=== PATIENT | male | born 1955 | race African-American/Black ===

== ENCOUNTER 2017-08-09 17:12 | Emergency (ER) | payer MEDICAID, OTHER ==
[~2017-08-09] VITALS: Ht 165.1 cm; Wt 60.0 kg
[2017-08-09] MEDS ORDERED: haldol (17:23)
[2017-08-09] MEDS ORDERED: AMLO2.5T2 PO (17:23)
[2017-08-09] MEDS ORDERED: OLAN2.5T3 PO (17:23)
[2017-08-09] MEDS ORDERED: BENZ0.5T3 PO (17:23)
[2017-08-09] MEDS ORDERED: IBUPROFEN 600MG TABLET PO ONE (18:45)
[2017-08-09 19:39] VITALS: BP 147/79
== END 2017-08-09 19:40 | disposition home or self-care (01) ==
LOC: ER 17:19
DX: S93.401A Sprain of unspecified ligament of right ankle, initial encounter (principal); I10 Essential (primary) hypertension; F31.9 Bipolar disorder, unspecified; X50.1XXA Overexertion from prolonged static or awkward postures, initial encounter; Y93.89 Activity, other specified; Y92.89 Other specified places as the place of occurrence of the external cause; Y99.8 Other external cause status
CPT/HCPCS: 73610; 99284; Z7610

== ENCOUNTER 2018-09-10 18:47 | Emergency (ER) | payer MEDICAID ==
[~2018-09-10] VITALS: Ht 177.8 cm; Wt 63.0 kg
[~2018-09-10 18:47] MED LIST: AMLO2.5T2 PO; BENZ0.5T43 PO; OLAN2.5T3 PO; haldol
[2018-09-10] MEDS ORDERED: LORAZEPAM 1MG TABLET PO ONE (20:00)
[2018-09-10 20:25] LABS: HEMATOCRIT. 41.9 % (42.0-52.0); HEMOGLOBIN. 14.4 g/dL (14.0-18.0); MEAN CORPUSCULAR HEMOGLOBIN 29.5 pg (28.0-32.0); MEAN PLATELET VOLUME 7.3 fl (7.4-10.4); PLATELET 247 x1000/uL (130-400); RED BLOOD CELL COUNT 4.87 mill/uL (4.7-6.1); RED CELL DISTRIBUTION WIDTH 12.3 % (11.6-14.6)
[2018-09-10 20:27] LABS: CHLORIDE 99 mEq/L (98-107)
[2018-09-10 20:31] LABS: ETHANOL BLOOD < 10 mg/dL
[2018-09-10 20:35] LABS: CREATINE KINASE 183 IU/L (39-308)
[2018-09-10 21:00] LABS: PLATELET ESTIMATE NORMAL
[2018-09-10 22:48] LABS: CLARITY URINE CLEAR (CLEAR); COLOR URINE YELLOW (YELLOW); KETONES URINE NEGATIVE (NEGATIVE); LEUKOCYTE ESTERASE URINE NEGATIVE (NEGATIVE); NITRITE URINE NEGATIVE (NEGATIVE); OCCULT BLOOD URINE NEGATIVE (NEGATIVE); PH URINE 7.5 (4.5-8.0); PROTEIN URINE NEGATIVE (NEGATIVE); SPECIFIC GRAVITY URINE 1.003 (1.005-1.030)
[2018-09-10 23:00] LABS: *AMPHETAMINES SCREEN URINE NEGATIVE (NEGATIVE)
[2018-09-10 23:01] LABS: *BARBITURATES SCREEN URINE NEGATIVE (NEGATIVE); *BENZODIAZEPINES SCREEN URINE NEGATIVE (NEGATIVE); *COCAINE SCREEN URINE NEGATIVE (NEGATIVE); METHADONE URINE SCREEN NEGATIVE (NEGATIVE); OPIATES URINE SCREEN NEGATIVE (NEGATIVE); PHENCYCLIDINE URINE SCREEN NEGATIVE (NEGATIVE)
[2018-09-10 23:02] LABS: CANNABINOID URINE SCREEN NEGATIVE (NEGATIVE)
[2018-09-12] MEDS ORDERED: LORAZEPAM 1MG TABLET PO ONE (03:15)
[2018-09-12 10:25] VITALS: BP 129/89
== END 2018-09-12 11:08 | disposition home or self-care (01) ==
LOC: ER 18:47
DX: F23 Brief psychotic disorder (principal); G93.49 Other encephalopathy; R44.0 Auditory hallucinations; E86.0 Dehydration
CPT/HCPCS: 36415; 80305; 80320; 82550; 84484; 93005; 99284; G0480

== ENCOUNTER 2019-04-07 09:09 | Inpatient (IN) | payer MEDICAID, OTHER ==
[~2019-04-07] VITALS: Ht 167.6 cm; Wt 56.8 kg
[2019-04-07 10:19] LABS: BASOPHILS % 0.2 % (0.0-2.0); HEMATOCRIT. 47.9 % (42.0-52.0); HEMOGLOBIN. 16.3 g/dL (14.0-18.0); LYMPHOCYTES % 9.8 % (20.0-50.0); MEAN CORPUSCULAR HEMOGLOBIN 29.3 pg (28.0-32.0); MEAN CORPUSCULAR VOLUME 85.8 fL (80.0-94.0); MEAN PLATELET VOLUME 8.1 fl (7.4-10.4); MONOCYTES % 4.2 % (2.0-8.0); NEUTROPHILS % 85.8 % (40.0-76.0); PLATELET 181 x1000/uL (130-400); RED BLOOD CELL COUNT 5.58 mill/uL (4.7-6.1); RED CELL DISTRIBUTION WIDTH 12.9 % (11.6-14.6)
[2019-04-07 12:01] LABS: CLARITY URINE CLEAR (CLEAR); COLOR URINE YELLOW (YELLOW); KETONES URINE 1+ (NEGATIVE); LEUKOCYTE ESTERASE URINE NEGATIVE (NEGATIVE); NITRITE URINE NEGATIVE (NEGATIVE); OCCULT BLOOD URINE TRACE (NEGATIVE); PROTEIN URINE 1+ (NEGATIVE); UROBILINOGEN URINE 0.2 E.U./dL (0.2-1.0)
[2019-04-07] MEDS ORDERED: OXYCODONE HCL/ACETAMINOPHEN 5/325MG TABLET PO ONE (12:15)
[2019-04-07] MEDS ORDERED: BACITRACIN 15GM TUBE TOP ONE (12:15)
[2019-04-07] MEDS ORDERED: KETOROLAC 30MG/ML VIAL IV ONE (12:15)
[2019-04-07 12:17] LABS: *AMPHETAMINES SCREEN URINE NEGATIVE (NEGATIVE); *BARBITURATES SCREEN URINE NEGATIVE (NEGATIVE); *BENZODIAZEPINES SCREEN URINE NEGATIVE (NEGATIVE); *COCAINE SCREEN URINE NEGATIVE (NEGATIVE)
[2019-04-07 12:19] LABS: CANNABINOID URINE SCREEN NEGATIVE (NEGATIVE); METHADONE URINE SCREEN NEGATIVE (NEGATIVE); OPIATES URINE SCREEN NEGATIVE (NEGATIVE); PHENCYCLIDINE URINE SCREEN NEGATIVE (NEGATIVE)
[2019-04-07 13:39] LABS: CHLORIDE 102 mEq/L (98-107)
[2019-04-07 13:43] LABS: ETHANOL BLOOD < 10 mg/dL
[2019-04-07 13:45] LABS: PROTHROMBIN TIME 10.2 sec (9.6-11.0)
[2019-04-07] MEDS ORDERED: DIPHENHYDRAMINE 50MG/ML VIAL IV PRN (15:00)
[2019-04-07] MEDS ORDERED: IPRATROPIUM/ALBUTEROL 0.5-3(2.5)MG/3ML NEB HHN PRN (15:00)
[2019-04-07] MEDS ORDERED: ACETAMINOPHEN 325MG TABLET PO PRN (15:00)
[2019-04-07] MEDS ORDERED: ONDANSETRON HCL 4MG/2ML INJ IV PRN (15:00)
[2019-04-07] MEDS ORDERED: MORPHINE SULFATE 2 MG/ML CPJ (NOT FOR IM USE) IV PRN (15:00)
[2019-04-07] MEDS ORDERED: PIPERACILLIN/TAZ 3.375G PREMIX 50 ML IV ONE (16:00)
[2019-04-07 17:56] VITALS: BP 159/76
[2019-04-07 18:00] VITALS: BP 159/76
[2019-04-07] MEDS ORDERED: HALO0.5T2 PO (18:06)
[2019-04-07 20:00] VITALS: BP 159/79
[2019-04-08 00:05] LABS: CREATINE KINASE MB FRACTION 5.5 ng/mL (0.5-3.6)
[2019-04-08 00:31] VITALS: BP 162/88
[2019-04-08] MEDS: SODIUM CHLORIDE 0.9% 1,000 ML IV SCH (07:40)
[2019-04-08 08:18] VITALS: BP 155/69
[2019-04-08 08:54] LABS: BASOPHILS % 0.2 % (0.0-2.0); HEMATOCRIT. 42.7 % (42.0-52.0); HEMOGLOBIN. 14.5 g/dL (14.0-18.0); LYMPHOCYTES % 14.8 % (20.0-50.0); MEAN CORPUSCULAR HEMOGLOBIN 29.1 pg (28.0-32.0); MEAN CORPUSCULAR VOLUME 85.5 fL (80.0-94.0); MONOCYTES % 7.8 % (2.0-8.0); NEUTROPHILS % 77.2 % (40.0-76.0); PLATELET 163 x1000/uL (130-400); RED CELL DISTRIBUTION WIDTH 12.7 % (11.6-14.6)
[2019-04-08 09:33] LABS: CHLORIDE 105 mEq/L (98-107)
[2019-04-08 10:05] LABS: HDL CHOLESTEROL 74 mg/dL (40-59)
[2019-04-08 10:06] LABS: LDL CHOLESTEROL 78 mg/dL (5-100)
[2019-04-08 10:14] LABS: CREATINE KINASE MB FRACTION 4.2 ng/mL (0.5-3.6)
[2019-04-08 10:29] LABS: CREATINE KINASE 1174 IU/L (39-308)
[2019-04-08 11:53] VITALS: BP 172/74
[2019-04-08 16:15] VITALS: BP 160/71
[2019-04-08 20:28] VITALS: BP 142/74
[2019-04-08 23:51] VITALS: BP 134/72
[2019-04-09] MEDS: SODIUM CHLORIDE 0.9% 1,000 ML IV SCH ×2 (02:58→17:00)
[2019-04-09 04:25] VITALS: BP 150/67
[2019-04-09 06:20] LABS: BASOPHILS % 0.4 % (0.0-2.0); HEMATOCRIT. 39.9 % (42.0-52.0); HEMOGLOBIN. 13.8 g/dL (14.0-18.0); LYMPHOCYTES % 17.5 % (20.0-50.0); MEAN CORPUSCULAR HEMOGLOBIN 29.5 pg (28.0-32.0); MEAN CORPUSCULAR VOLUME 85.1 fL (80.0-94.0); MEAN PLATELET VOLUME 8.3 fl (7.4-10.4); MONOCYTES % 11.4 % (2.0-8.0); NEUTROPHILS % 70.7 % (40.0-76.0); PLATELET 152 x1000/uL (130-400); RED BLOOD CELL COUNT 4.69 mill/uL (4.7-6.1)
[2019-04-09 06:49] LABS: CHLORIDE 106 mEq/L (98-107)
[2019-04-09 08:00] VITALS: BP 156/72
[2019-04-09 08:30] VITALS: BP 126/82
[2019-04-09 12:00] VITALS: BP 151/81
[2019-04-09 16:00] VITALS: BP 140/78
[2019-04-09 20:54] VITALS: BP 117/61
[2019-04-10 00:28] VITALS: BP 129/60
[2019-04-10 04:48] VITALS: BP 137/62
[2019-04-10 08:00] VITALS: BP 130/88
[2019-04-10] MEDS: SODIUM CHLORIDE 0.9% 1,000 ML IV SCH ×2 (09:40→19:00)
[2019-04-10 10:18] LABS: CHLORIDE 106 mEq/L (98-107)
[2019-04-10 10:20] LABS: BASOPHILS % 0.6 % (0.0-2.0); EOSINOPHILS % 0.2 % (0.0-5.0); HEMATOCRIT. 42.6 % (42.0-52.0); HEMOGLOBIN. 14.7 g/dL (14.0-18.0); MEAN CORPUSCULAR HEMOGLOBIN 29.3 pg (28.0-32.0); MEAN PLATELET VOLUME 8.4 fl (7.4-10.4); MONOCYTES % 8.4 % (2.0-8.0); NEUTROPHILS % 71.8 % (40.0-76.0); PLATELET 170 x1000/uL (130-400); RED BLOOD CELL COUNT 5.01 mill/uL (4.7-6.1); RED CELL DISTRIBUTION WIDTH 12.6 % (11.6-14.6)
[2019-04-10 12:00] VITALS: BP 100/64
[2019-04-10 16:00] VITALS: BP 130/73
[2019-04-10 20:00] VITALS: BP 134/61
[2019-04-11] VITALS: BP 112/61
[2019-04-11 04:00] VITALS: BP 126/72
[2019-04-11 05:55] LABS: BASOPHILS % 0.5 % (0.0-2.0); EOSINOPHILS % 0.5 % (0.0-5.0); HEMATOCRIT. 41.2 % (42.0-52.0); LYMPHOCYTES % 20.6 % (20.0-50.0); MEAN CORPUSCULAR HEMOGLOBIN 29.2 pg (28.0-32.0); MEAN CORPUSCULAR VOLUME 85.8 fL (80.0-94.0); MEAN PLATELET VOLUME 8.3 fl (7.4-10.4); MONOCYTES % 11.5 % (2.0-8.0); NEUTROPHILS % 66.9 % (40.0-76.0); PLATELET 181 x1000/uL (130-400); RED BLOOD CELL COUNT 4.81 mill/uL (4.7-6.1); RED CELL DISTRIBUTION WIDTH 12.7 % (11.6-14.6)
[2019-04-11 06:01] LABS: CHLORIDE 104 mEq/L (98-107)
[2019-04-11 18:27] VITALS: BP 112/68
[2019-04-11 20:00] VITALS: BP 155/76
== END 2019-04-11 22:35 | DRG 384 ==
LOC: ER 09:09 → 6WST 14:29 → ENRESERV 15:30 → 6WST 19:20
PROVIDERS: ADMIT Internal Medicine; ATTEND Internal Medicine
DX: S00.81XA Abrasion of other part of head, initial encounter (principal); F20.9 Schizophrenia, unspecified; M62.82 Rhabdomyolysis; M48.02 Spinal stenosis, cervical region; M48.56XA Collapsed vertebra, not elsewhere classified, lumbar region, initial encounter for fracture; E44.1 Mild protein-calorie malnutrition; S49.91XA Unspecified injury of right shoulder and upper arm, initial encounter; D72.829 Elevated white blood cell count, unspecified; S82.001A Unspecified fracture of right patella, initial encounter for closed fracture; I10 Essential (primary) hypertension; M19.90 Unspecified osteoarthritis, unspecified site; F31.9 Bipolar disorder, unspecified; K44.9 Diaphragmatic hernia without obstruction or gangrene; Z59.0 Homelessness; Z79.899 Other long term (current) drug therapy; V49.9XXA Car occupant (driver) (passenger) injured in unspecified traffic accident, initial encounter; Y93.89 Activity, other specified; Y92.89 Other specified places as the place of occurrence of the external cause; Y99.8 Other external cause status; Z68.20 Body mass index [BMI] 20.0-20.9, adult
CPT/HCPCS: 36415; 71045; 72141; 72146; 72148; 73030; 73560; 73700; 74176; 80048; 80053; 80061; 80305; 80320; 81003; 82550; 82553; 82962; 84443; 85025; 86850; 86900; 93005; 93970; 97116; 97162; 97166; 97530; 99285; J1885; J2270; J2543; G0480

== ENCOUNTER 2019-06-13 13:00 | Emergency (ER) | payer OTHER ==
[~2019-06-13] VITALS: Ht 177.8 cm; Wt 66.0 kg
[~2019-06-13 13:00] MED LIST changes: +HALO0.5T2 MT; -haldol
[2019-06-13 13:17] VITALS: BP 168/84
== END 2019-06-13 16:05 | disposition left against medical advice (07) ==
LOC: ER 13:55
DX: M25.511 Pain in right shoulder (principal); Z53.21 Procedure and treatment not carried out due to patient leaving prior to being seen by health care provider

== ENCOUNTER 2019-07-01 16:11 | Inpatient (IN) | payer MEDICAID, OTHER ==
[~2019-07-01] VITALS: Ht 170.2 cm; Wt 77.1 kg
[~2019-07-01 16:11] MED LIST changes: -HALO0.5T2 MT; +HALO0.5T2 PO
[2019-07-01] MEDS ORDERED: SODIUM CHLORIDE 0.9% 500 ML IV ONE (19:15)
[2019-07-01 19:27] LABS: HEMATOCRIT. 35.8 % (42.0-52.0); HEMOGLOBIN. 12.3 g/dL (14.0-18.0); MEAN CORPUSCULAR HEMOGLOBIN 29.5 pg (28.0-32.0); MEAN CORPUSCULAR VOLUME 86.1 fL (80.0-94.0); MEAN PLATELET VOLUME 7.6 fl (7.4-10.4); PLATELET 197 x1000/uL (130-400); RED BLOOD CELL COUNT 4.16 mill/uL (4.7-6.1); RED CELL DISTRIBUTION WIDTH 12.9 % (11.6-14.6)
[2019-07-01 19:34] LABS: CHLORIDE 108 mEq/L (98-107)
[2019-07-01 21:05] LABS: PLATELET ESTIMATE NORMAL
[2019-07-01] MEDS ORDERED: ONDANSETRON HCL 4MG/2ML INJ IV NR (23:45)
[2019-07-02] MEDS ORDERED: FAMOTIDINE 20MG/2ML VIAL IV SCH (01:00)
[2019-07-02] MEDS ORDERED: SODIUM CHLORIDE 0.9% 1,000 ML IV NR (01:00)
[2019-07-02 01:22] LABS: CLARITY URINE CLEAR (CLEAR); COLOR URINE YELLOW (YELLOW); KETONES URINE NEGATIVE (NEGATIVE); LEUKOCYTE ESTERASE URINE NEGATIVE (NEGATIVE); NITRITE URINE NEGATIVE (NEGATIVE); OCCULT BLOOD URINE NEGATIVE (NEGATIVE); PH URINE 7.5 (4.5-8.0); PROTEIN URINE NEGATIVE (NEGATIVE); SPECIFIC GRAVITY URINE 1.011 (1.005-1.030)
[2019-07-02 01:59] LABS: *AMPHETAMINES SCREEN URINE NEGATIVE (NEGATIVE); *BARBITURATES SCREEN URINE NEGATIVE (NEGATIVE); *COCAINE SCREEN URINE NEGATIVE (NEGATIVE)
[2019-07-02 02:00] LABS: CANNABINOID URINE SCREEN NEGATIVE (NEGATIVE); OPIATES URINE SCREEN NEGATIVE (NEGATIVE); PHENCYCLIDINE URINE SCREEN NEGATIVE (NEGATIVE)
[2019-07-02 02:02] LABS: *BENZODIAZEPINES SCREEN URINE NEGATIVE (NEGATIVE)
[2019-07-02 05:00] VITALS: BP 124/87
[2019-07-02 08:00] VITALS: BP 100/67
[2019-07-02] MEDS ORDERED: ONDANSETRON HCL 4MG/2ML INJ IV PRN (08:30)
[2019-07-02] MEDS ORDERED: CLONIDINE 0.1MG TABLET PO PRN (09:45)
[2019-07-02] MEDS: PANTOPRAZOLE SODIUM 40 MG/VIAL IV SCH ×2 (09:47→17:41)
[2019-07-02] MEDS ORDERED: INFLUENZA VIRUS VACCINE(AFLURIA) 0.5ML SYR IM ONE (10:00)
[2019-07-02 12:00] VITALS: BP 100/74
[2019-07-02] MEDS ORDERED: ACETAMINOPHEN 325MG TABLET PO PRN (15:00)
[2019-07-02 15:28] LABS: METHADONE URINE SCREEN NEGATIVE (NEGATIVE)
[2019-07-02 16:00] VITALS: BP 118/79
[2019-07-02] MEDS: AMLODIPINE 2.5MG TABLET PO SCH (17:40)
[2019-07-02] MEDS: TAMSULOSIN HCL 0.4MG SR CAPSULE PO SCH (17:43)
[2019-07-02 20:00] VITALS: BP 123/60
[2019-07-03] VITALS: BP 117/63
[2019-07-03 00:17] LABS: HEMATOCRIT 38.8 % (42.0-52.0); HEMOGLOBIN 13.2 g/dL (14.0-18.0)
[2019-07-03 04:00] VITALS: BP 114/55
[2019-07-03 08:00] VITALS: BP 130/89
[2019-07-03] MEDS: TAMSULOSIN HCL 0.4MG SR CAPSULE PO SCH (10:33)
[2019-07-03] MEDS: PANTOPRAZOLE SODIUM 40 MG/VIAL IV SCH ×2 (10:33→17:00)
[2019-07-03] MEDS: AMLODIPINE 2.5MG TABLET PO SCH (10:33)
[2019-07-03 12:00] VITALS: BP 121/70
[2019-07-03 16:47] VITALS: BP 131/64
[2019-07-03] MEDS ORDERED: TAMS-11 PO (18:50)
[2019-07-03 20:00] VITALS: BP 117/75
[2019-07-04] VITALS: BP 121/76
[2019-07-04 04:00] VITALS: BP 123/70
[2019-07-04 08:00] VITALS: BP 127/71
[2019-07-04] MEDS: PANTOPRAZOLE SODIUM 40 MG/VIAL IV SCH (09:00)
[2019-07-04] MEDS: AMLODIPINE 2.5MG TABLET PO SCH (09:20)
[2019-07-04] MEDS: TAMSULOSIN HCL 0.4MG SR CAPSULE PO SCH (09:20)
[2019-07-04 12:00] VITALS: BP 133/77
[2019-07-04 12:47] VITALS: BP 133/77
== END 2019-07-04 15:46 | disposition home or self-care (01) | DRG 253 ==
LOC: ER 16:11 → 7WST 07-02 00:06 → EDBEDREQ 07-02 00:08 → EDBEDREQDT 07-02 00:08 → EDBEDREQTM 07-02 00:08 → ENRESERV 07-02 04:01
PROVIDERS: ADMIT Internal Medicine; ATTEND Internal Medicine
DX: K92.2 Gastrointestinal hemorrhage, unspecified (principal); G93.40 Encephalopathy, unspecified; J18.9 Pneumonia, unspecified organism; G90.8 Other disorders of autonomic nervous system; F20.9 Schizophrenia, unspecified; F31.9 Bipolar disorder, unspecified; F99 Mental disorder, not otherwise specified; M19.90 Unspecified osteoarthritis, unspecified site; I10 Essential (primary) hypertension; F17.210 Nicotine dependence, cigarettes, uncomplicated; Z59.0 Homelessness; Z79.899 Other long term (current) drug therapy
CPT/HCPCS: 36415; 71045; 74176; 80053; 80305; 80320; 81003; 83880; 84145; 84484; 85014; 85018; 85025; 90686; 93005; 93306; 93880; 93970; C9113; J2405; J3490; J7040; G0480

== ENCOUNTER 2021-01-19 10:09 | Emergency (ER) | payer OTHER ==
[~2021-01-19] VITALS: Ht 175.3 cm; Wt 65.0 kg
[~2021-01-19 10:09] MED LIST changes: +TAMS-11 PO
[2021-01-19] MEDS ORDERED: SODIUM CHLORIDE 0.9% 1000ML BAG (SEPSIS BOLUS) IV ONE (10:30)
[2021-01-19] MEDS ORDERED: PIPERACILLIN/TAZOBACTAM 3.375GM/50ML PREMIX IV NR (13:00)
[2021-01-19 13:41] LABS: CHLORIDE 110 mEq/L (98-107); PROTHROMBIN TIME 10.6 sec (9.6-11.0)
[2021-01-19 13:45] LABS: ETHANOL BLOOD < 10 mg/dL
[2021-01-19 13:53] LABS: CREATINE KINASE 277 IU/L (39-308)
[2021-01-19] MEDS ORDERED: DEXTROSE 50% WATER 50ML SYRINGE IV ONE (14:00)
[2021-01-19 15:23] LABS: CLARITY URINE CLEAR (CLEAR); COLOR URINE YELLOW (YELLOW); KETONES URINE NEGATIVE (NEGATIVE); LEUKOCYTE ESTERASE URINE NEGATIVE (NEGATIVE); NITRITE URINE NEGATIVE (NEGATIVE); OCCULT BLOOD URINE NEGATIVE (NEGATIVE); PROTEIN URINE 2+ (NEGATIVE); SPECIFIC GRAVITY URINE 1.018 (1.005-1.030)
[2021-01-19 15:45] LABS: *AMPHETAMINES SCREEN URINE NEGATIVE (NEGATIVE); *BARBITURATES SCREEN URINE NEGATIVE (NEGATIVE); *BENZODIAZEPINES SCREEN URINE NEGATIVE (NEGATIVE); *COCAINE SCREEN URINE NEGATIVE (NEGATIVE); CANNABINOID URINE SCREEN NEGATIVE (NEGATIVE); METHADONE URINE SCREEN NEGATIVE (NEGATIVE); OPIATES URINE SCREEN NEGATIVE (NEGATIVE); PHENCYCLIDINE URINE SCREEN NEGATIVE (NEGATIVE)
[2021-01-19 15:48] LABS: BASOPHILS % 0.3 % (0.0-2.0); EOSINOPHILS % 0.1 % (0.0-5.0); HEMATOCRIT. 37.3 % (42.0-52.0); HEMOGLOBIN. 12.6 g/dL (14.0-18.0); LYMPHOCYTES % 19.9 % (20.0-50.0); MEAN CORPUSCULAR HEMOGLOBIN 28.7 pg (28.0-32.0); MEAN PLATELET VOLUME 7.9 fl (7.4-10.4); MONOCYTES % 4.2 % (2.0-8.0); NEUTROPHILS % 75.5 % (40.0-76.0); PLATELET 176 x1000/uL (130-400); RED BLOOD CELL COUNT 4.39 mill/uL (4.7-6.1); RED CELL DISTRIBUTION WIDTH 12.8 % (11.6-14.6)
[2021-01-19 21:41] VITALS: BP 135/69
== END 2021-01-19 21:59 | disposition short-term general hospital (02) ==
LOC: ER 10:09 → EDBEDREQTM 12:10 → EDBEDREQSVC 12:10 → EDBEDREQ 12:10 → ER 21:59 → CANBEDREQ 22:04
DX: A41.9 Sepsis, unspecified organism (principal); J18.9 Pneumonia, unspecified organism; E16.2 Hypoglycemia, unspecified; I10 Essential (primary) hypertension
CPT/HCPCS: 36415; 71045; 80053; 80305; 80320; 81003; 82550; 82962; 83605; 83880; 84145; 84484; 85025; 85610; 87086; 93005; 96374; 96375; 99291; J2543; J7030; G0480